=== PATIENT | male | born 1985 | race Two or more races ===

== ENCOUNTER 2016-07-16 16:18 | Emergency (ER) | payer OTHER ==
[2016-07-16 17:11] VITALS: BP 154/87; PULSE 84; RESP 18; TEMP 98.1; O2SAT 96
[2016-07-16] MEDS ORDERED: DIPH,PERTUSS(ACELL),TET PED/PF 0.5 ML VIAL IM ONE (17:11)
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
[2016-07-16] MEDS ORDERED: TDAP ADULT 0.5 ML INJ (BOOSTRIX) IM ONE (18:21)
== END 2016-07-16 18:35 | disposition home or self-care (01) ==
LOC: CED 16:18
PROC: 0JQ00ZZ Repair Scalp Subcutaneous Tissue and Fascia, Open Approach (ICD-10-PCS; principal; 2016-07-16)
DX: S09.90XA Unspecified injury of head, initial encounter (principal); S01.01XA Laceration without foreign body of scalp, initial encounter; W22.8XXA Striking against or struck by other objects, initial encounter; Z88.0 Allergy status to penicillin
CPT/HCPCS: 12002-PO; 99203-PO